=== PATIENT | male | born 1965 | race Caucasian/White ===

== ENCOUNTER 2019-05-08 12:02 | Emergency (ER) | payer BC ==
[2019-05-08 12:26] VITALS: BP 142/82
--- NOTE | 2019-05-08 12:32 | UC ---
Ear Complaint HPI - HPI Summary HPI Summary: 54-year-old male presents with a five-day history of left ear pain. States he uses Q-tips on a daily basis and started noticing tenderness while cleaning his years. Denies fever, chills, ear drainage, loss of hearing, tinnitus, vertigo, or URI symptoms. - History of Current Complaint Chief Complaint: UCEar Stated Complaint: EAR PAIN Time Seen by Provider: 05/08/19 12:29 Hx Obtained From: Patient Pain Intensity: 5 - Allergies/Home Medications Allergies/Adverse Reactions: Allergies Allergy/AdvReac Type Severity Reaction Status Date / Time No Known Allergies Allergy Verified 05/08/19 12:22 Home Medications: Home Medications NK [No Home Medications Reported] 05/08/19 [History Confirmed 05/08/19] PMH/Surg Hx/FS Hx/Imm Hx Previously Healthy: Yes - Denies significant PMH - Surgical History Surgical History: Yes Surgery Procedure, Year, and Place: cyst removed from chest wall - Family History Known Family History: Positive: Non-Contributory - Social History Occupation: Employed Full-time Lives: With Family Alcohol Use: None Substance Use Type: None Smoking Status (MU): Never Smoked Tobacco Review of Systems All Other Systems Reviewed And Are Negative: Yes Constitutional: Negative: Fever, Chills Eyes: Negative: Drainage, Eye Redness ENT: Positive: Ear Ache. Negative: Sore Throat, Nasal Discharge, Sinus Congestion, Sinus Pain/Tenderness Respiratory: Negative: Shortness Of Breath, Cough Cardiovascular: Positive: Negative Gastrointestinal: Positive: Negative Genitourinary: Positive: Negative Musculoskeletal: Positive: Negative Neurological: Positive: Negative Is Patient Immunocompromised?: No Physical Exam - Summary Physical Exam Summary: GENERAL APPEARANCE: Well developed, well nourished, alert and cooperative, and appears to be in no acute distress. EYES: Conjunctiva clear. No drainage. EARS: right external auditory canal and tympanic membranes clear. Left external auditory canal erythematous with mild to moderate edema. Left TM is opaque and intact. Hearing grossly intact. NOSE: No nasal discharge. THROAT: Pharynx normal No tonsilar inflammation, swelling, exudate, or lesions. Uvula midline. NECK: Neck supple, non-tender without lymphadenopathy. CARDIAC: Normal S1 and S2. No S3, S4 or murmurs. Rhythm is regular. There is no peripheral edema, cyanosis or pallor. Extremities are warm and well perfused. Capillary refill is less than 2 seconds. Peripheral pulses intact. LUNGS: Clear to auscultation without rales, rhonchi, wheezing or diminished breath sounds. ABDOMEN: Positive bowel sounds. Soft, nondistended, nontender. No guarding or rebound. No masses or hepatosplenomegally. MUSKULOSKELETAL: ROM intact to all extremities. No joint erythema or tenderness. Normal muscular development. Normal gait. SKIN: Skin normal color, texture and turgor with no lesions or eruptions. Triage Information Reviewed: Yes Vital Signs: Initial Vital Signs Temp 99.1 F 05/08/19 12:23 Pulse 72 05/08/19 12:23 Resp 14 05/08/19 12:23 BP 142/82 05/08/19 12:23 Pulse Ox 99 05/08/19 12:23 Vital Signs Reviewed: Yes Ear Complaint Course/Dx - Course Course Of Treatment: 54-year-old male presents with a five-day history of left ear pain. States he uses Q-tips on a daily basis and started noticing tenderness while cleaning his years. Denies fever, chills, ear drainage, loss of hearing, tinnitus, vertigo, or URI symptoms. Afebrile. Hypertensive signs stable. Patient had erythema and edema of the left external auditory canal with an opaque TM and otherwise unremarkable exam. Will treat for a left otitis externa with Cipro HC 7 days. Patient is to follow-up with his primary care provider in 5-7 days if symptoms are not improving. Anticipatory guidance and warning symptoms were reviewed with the patient. Verbalizes understanding and agrees with plan of care. - Differential Dx/Diagnosis Differential Diagnosis/HQI/PQRI: Cerumen Impaction, Otitis Externa, Otitis Media Provider Diagnosis: Left otitis externa Discharge ED - Sign-Out/Discharge Documenting (check all that apply): Patient Departure All imaging exams completed and their final reports reviewed: No Studies - Discharge Plan Condition: Stable Disposition: HOME Patient Education Materials: Otitis Externa (ED) Referrals: Roberth Gann MD [Primary Care Provider] - 5 Days Additional Instructions: Start ciprofloxacin-hydrocortisone drop. Instill 3 drops into the affected ear twice a day for 7 days. Use acetaminophen (Tylenol) or ibuprofen (Advil, Motrin) according to directions as needed for pain. Avoid getting water in your ear. Do not place anything in the ear canal. Follow up with your primary care provider in 5-7 days if no improvement. Seek immediate medical attention in the emergency room if you develop fever greater than 100.5 F, have severe pain that is not managed with over-the- counter pain medication, you have blood or drainage from the ears, loss of hearing, or any worsening of symptoms. - Billing Disposition and Condition Condition: STABLE Disposition: Home
== END 2019-05-08 12:49 | disposition home or self-care (01) ==
LOC: UCCORT 12:02
DX: H60.92 Unspecified otitis externa, left ear (principal)
CPT/HCPCS: 99202; G0463